=== PATIENT | male | born 1955 | race African-American/Black ===

== ENCOUNTER 2022-02-03 14:02 | Emergency (ER) | payer MEDICAID ==
[~2022-02-03] VITALS: Ht 165.1 cm; Wt 60.5 kg
--- NOTE | 2022-02-03 14:05 | NUR ---
RECEIVED PT 66 YRS MALE CAME FROM [facility] PT FELL DOWN 2 TIME TODA PT ABLE TO AMBLATE BUT FELL DOWN
--- NOTE | 2022-02-03 14:40 | NUR ---
INSERTED ANG CATHTER G18 ON LT UPPER ARM BLOOD DROW AND SENT TO LAB
[2022-02-03] MEDS ORDERED: LORA-259 PO (14:55)
[2022-02-03] MEDS ORDERED: ATOR40TA PO (14:55)
[2022-02-03] MEDS ORDERED: QUET100T PO (14:55)
[2022-02-03] MEDS ORDERED: SENN-261 PO (14:55)
[2022-02-03] MEDS ORDERED: ASPI-1169 PO (14:55)
[2022-02-03 15:19] LABS: BASOPHILS % (AUTO) 0.6 % (0.0-2.0); EOSINOPHILS % (AUTO) 4.2 % (0.0-6.0); HEMATOCRIT 49 % (39-51); HEMOGLOBIN 15.9 g/dL (13.5-17.5); LYMPHOCYTES # (AUTO) 2.2 K/uL (0.8-4.8); MEAN CORPUSCULAR HGB CONC 33 g/dl (31.0-36.0); MEAN CORPUSCULAR VOLUME 85 fL (80-96); MONOCYTES # (AUTO) 0.7 K/uL (0.1-1.30); MONOCYTES % (AUTO) 8.1 % (2.0-12.0); NEUTROPHILS # (AUTO) 5.2 K/uL (1.8-8.9); NEUTROPHILS % (AUTO) 61.1 % (43.0-81.0); PLATELET COUNT (AUTO) 208 K/uL (150-450); RED BLOOD CELL COUNT(AUTO) 5.74 MIL/uL (4.5-6.0); WHITE BLOOD COUNT (AUTO) 8.6 K/uL (4.3-11.0)
[2022-02-03 15:40] LABS: CALCIUM, SERUM 9.6 mg/dL (8.5-10.1); CARBON DIOXIDE 29 mmol/L (21-32); CHLORIDE 103 mmol/L (98-107); CREATININE 1.1 mg/dL (0.6-1.3); GLUCOSE 87 mg/dL (74-106); POTASSIUM 3.5 mmol/L (3.5-5.1); SODIUM SERUM 140 mmol/L (136-145); UREA NITROGEN, BLOOD 22 mg/dL (7-18)
--- NOTE | 2022-02-03 16:30 | NUR ---
ASLEEPY VS STABLE
--- NOTE | 2022-02-03 17:30 | NUR ---
I&O CATHETER DONE UA SENT TO LAB
--- NOTE | 2022-02-03 18:15 | NUR ---
COVID SWAB SENT TO LAB
--- NOTE | 2022-02-03 19:30 | NUR ---
HAND OFF DARRYL FRANCOIS
[2022-02-03 19:46] LABS: BILIRUBIN,URINE SMALL (NEGATIVE); COLOR,URINE YELLOW (YELLOW); LEUKOCYTE ESTERASE ,URINE NEGATIVE (NEGATIVE); NITRITE, URINE NEGATIVE (NEGATIVE); PROTEIN,URINE NEGATIVE (NEGATIVE); UGLUCOSE NEGATIVE (NEGATIVE); UROBILINOGEN,URINE 0.2 EU/dL (0.2)
[2022-02-03 19:53] LABS: BACTERIA,URINE None seen /HPF (None Seen); RBC,URINE 0-2 /HPF (0-2); SQUAMOUS EPITHELIAL CELL,UR 0-2 /HPF (None Seen); WBC,URINE 0-2 /HPF (0-3)
--- NOTE | 2022-02-03 20:39 | NUR ---
[facility] ETA 30 MINS
--- NOTE | 2022-02-03 20:44 | NUR ---
REPORT GIVEN TO BRANDY
--- NOTE | 2022-02-03 21:32 | NUR ---
PT PICKED UP BY [facility] FOR TRANSFER BACK TO FACILITY IN STABLE CONDITION
[2022-02-03 21:33] VITALS: BP 133/52
== END 2022-02-03 21:33 | disposition home or self-care (01) ==
LOC: ER 14:04
DX: R07.81 Pleurodynia (principal); R51.9 Headache, unspecified; I10 Essential (primary) hypertension; Z79.899 Other long term (current) drug therapy
CPT/HCPCS: 36415; 70450-TC; 71045-TC; 80048-TC; 81001; 84484-TC; 85025-TC